=== PATIENT | male | born 1985 | race African-American/Black ===

== ENCOUNTER 2018-05-29 01:48 | Emergency (ER) | payer SELFPAY ==
[~2018-05-29] VITALS: Ht 182.9 cm; Wt 79.0 kg
[2018-05-29] MEDS ORDERED: KETOROLAC 30MG/ML VIAL IV ONE (03:15)
[2018-05-29] MEDS ORDERED: SODIUM CHLORIDE 0.9% 1,000 ML IV ONE (03:15)
[2018-05-29] MEDS ORDERED: DIPHENHYDRAMINE 25MG CAPSULE PO ONE (03:15)
[2018-05-29] MEDS ORDERED: MORPHINE SULFATE 4 MG/ML CPJ (NOT FOR IM USE) IV ONE ×2 (04:00→06:00)
[2018-05-29 04:15] LABS: CHLORIDE 107 mEq/L (98-107)
[2018-05-29] MEDS: POTASSIUM CHLORIDE 20MEQ TABLET SR PO NR ×2 (04:29→05:32)
[2018-05-29] MEDS ORDERED: DIPHENHYDRAMINE 50MG/ML VIAL IV ONE (04:30)
[2018-05-29 04:37] LABS: HEMATOCRIT 26.3 % (42.0-52.0); HEMOGLOBIN 8.9 g/dL (14.0-18.0); MEAN CORPUSCULAR HEMOGLOBIN 26.7 pg (28.0-32.0); MEAN CORPUSCULAR VOLUME 78.6 fL (80.0-94.0); PLATELET 141 x1000/uL (130-400); RED BLOOD CELL COUNT 3.34 mill/uL (4.7-6.1); RED CELL DISTRIBUTION WIDTH 24.2 % (11.6-14.6)
[2018-05-29 06:49] VITALS: BP 134/67
== END 2018-05-29 06:55 | disposition home or self-care (01) ==
LOC: ER 01:48
DX: D57.00 Hb-SS disease with crisis, unspecified (principal); R00.0 Tachycardia, unspecified; R03.0 Elevated blood-pressure reading, without diagnosis of hypertension; Z88.5 Allergy status to narcotic agent; Z88.8 Allergy status to other drugs, medicaments and biological substances
CPT/HCPCS: 36415; 80053; 85027; 85044; 85660; 93005; 96374; 96375; 96376; 99285; J1200; J1885; J2270; J7030; Q0163